=== PATIENT | female | born 2000 | race Hispanic/Latino ===

== ENCOUNTER 2022-07-27 15:06 | Emergency (ER) | payer OTHER ==
[~2022-07-27] VITALS: Ht 152.4 cm; Wt 55.4 kg
[2022-07-27 15:07] VITALS: TEMP 97.3
[2022-07-27] MEDS ORDERED: MED REC IN PROGRESS XX SCH (17:30)
[2022-07-27] MEDS ORDERED: LIDOCAINE 2% MDV 20ML VIAL SC ONE (18:30)
[2022-07-27] MEDS ORDERED: CEPHALEXIN 500 MG CAP PO ONE (18:30)
[2022-07-27] MEDS ORDERED: CEPH500C PO (18:59)
[2022-07-27 19:46] VITALS: BP 118/78; O2SAT 100
== END 2022-07-27 19:50 | disposition home or self-care (01) ==
LOC: M ED 15:06
DX: S61.219A Laceration without foreign body of unspecified finger without damage to nail, initial encounter (principal); W26.0XXA Contact with knife, initial encounter; Y99.1 Military activity